=== PATIENT | male | born 1990 | race Caucasian/White ===

== ENCOUNTER 2020-12-13 18:44 | Emergency (ER) | payer SELFPAY ==
[~2020-12-13] VITALS: Ht 177.8 cm; Wt 113.6 kg
[~2020-12-13 18:44] MED LIST: NO MEDICATIONS
[2020-12-13] MEDS ORDERED: HYDROCODONE/ACETAMINOPHEN 5-325 MG TABLET PO ONE (19:30)
[2020-12-13 22:30] VITALS: BP 121/75
[2020-12-13] MEDS ORDERED: HydrALAZINE HCL 20 MG/ML VIAL IVP ONE (22:30)
[2020-12-13 22:31] LABS: COVID AG,FIA SOURCE NASOPHARYNGEAL
== END 2020-12-13 22:40 | disposition left against medical advice (07) ==
LOC: EMS 18:46
DX: S02.2XXA Fracture of nasal bones, initial encounter for closed fracture (principal); Z20.822 Contact with and (suspected) exposure to COVID-19; Y04.0XXA Assault by unarmed brawl or fight, initial encounter; Y93.89 Activity, other specified; Y92.89 Other specified places as the place of occurrence of the external cause; Y99.8 Other external cause status
CPT/HCPCS: 70450; 70486; 71111; 99285